=== PATIENT | female | born 1985 | race Two or more races ===

== ENCOUNTER 2016-09-29 18:30 | Emergency (ER) | payer OTHER ==
[2016-09-29] MEDS ORDERED: ONDANSETRON 4 MG/2ML 2 ML VIAL ONE (19:38)
== END 2016-09-29 21:33 | disposition home or self-care (01) ==
LOC: ED 18:30
DX: K52.9 Noninfective gastroenteritis and colitis, unspecified (principal); J45.909 Unspecified asthma, uncomplicated; F17.210 Nicotine dependence, cigarettes, uncomplicated
CPT/HCPCS: 99283 ×2; 96374; 96361; J2405